=== PATIENT | female | born 1935 | race Caucasian/White ===

== ENCOUNTER 2016-11-23 22:12 | Observation (INO) ==
--- NOTE | 2016-11-23 22:45 | Emergency Department Note ---
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 pt was given asa and zofran in route. pt reports no chest pain at time of triage. hx htn, gerd Mode of Arrival: Stretcher Time Seen by Provider: 11/23/16 22:43 - History of Present Illness HPI Narrative: This is an 81-year-old white female who presents with sudden onset of vertigo associated with diaphoresis and vomiting and elevated blood pressure which started just prior to arrival. The patient had some chest pain which was fleeting and is now gone in association with the vomiting. She has noticed that sitting up and laying flat seems to trigger the vertigo sweating and vomiting. Allergies/Adverse Reactions: Allergies Allergy/AdvReac Type Severity Reaction Status Date / Time No Known Allergies Allergy Verified 06/17/15 12:21 Home Medications: Home Medications Medication Instructions Recorded Confirmed Type Aspirin EC Tab 81 mg PO DAILY 06/17/15 06/17/15 History Latanoprost 0.005% Oph Soln 1 drop BOTH EYES BEDTIME 06/17/15 06/18/15 History [Xalatan 0.005% Oph Soln] Omeprazole [Prilosec] 20 mg PO DAILY 06/17/15 06/18/15 History hydroCHLOROthiazide 25 mg PO DAILY 06/17/15 06/18/15 History [Hydrochlorothiazide] HYDROcodone/ACETAMIN 7.5-325 2 tablet PO Q4H PRN #25 tablet 06/21/15 Rx [[place] 7.5-325] Review of System - Review of System Constitutional: Absent: fever, night sweats Eyes: Absent: redness, vision change Head/Ears/Nose/Throat: Absent: epistaxis, nasal drainage Respiratory: Absent: respiratory distress Cardiovascular: Absent: dyspnea on exertion, orthopnea Gastrointestinal: Absent: diarrhea, constipation, hematemesis Genitourinary female: Absent: dyspareunia, frequency Musculoskeletal: Absent: joint swelling, lower back pain Skin: Absent: change in color, change in hair/nails Neurological: Absent: numbness, paresthesias Psychiatric: Absent: anxiety, suicidal thoughts Endocrine: Absent: heat intolerance, polydipsia Hematological/Lymphatic: Absent: easy bruising, lymphadenopathy Allergic/Immunologic: Absent: urticaria, itchy eyes Medical,Surgical,& Family Hx - Medical History Cardio: History of: Hypertension HEENT: History of: Eye Problem (Cataracts) Comment Only: Glaucoma (?Questionable-On Drops at bedtime) Respiratory: No history of: Respiratory Problems (10/2014 Flu Vac; No Pneum Vac) Gastrointestinal: History of: GERD, Gastrointestinal Bleed, GI Problems Musculoskeletal: History of: Musculoskeletal Problems (OA-Uses a straight Cane) - Surgical History Abdominal Surgeries: Surgical HX of: Cholecystectomy, Colonoscopy Reproductive Surgeries: Surgical HX of;: Hysterectomy Orthopedic Surgeries: Surgical HX of;: Total Knee Replacement (06/18/[address] Martín Lance) - Family History Family History: Reports;: Family Cancer (mother and grand father) - Social History Smoking Status: Never smoker Frequency of Alcohol Use: None Type of Drug Use: None Exam Vital Signs: Vital Signs Pulse Rate 57 L 11/23/16 22:12 Respiratory Rate 15 11/23/16 22:12 Blood Pressure 142/94 11/23/16 22:12 O2 Sat by Pulse Oximetry 99 11/23/16 22:12 - General Exam limited due to: ALOC - Head Head exam: Present: atraumatic, normocephalic - Eye Eye exam: Present: PERRL, EOMI - ENT ENT exam: Present: normal exam, normal oropharynx - Neck Neck exam: Present: normal inspection, full ROM - Chest Chest inspection: Present: normal inspection - Respiratory Respiratory exam: Present: normal lung sounds bilaterally - Cardiovascular Cardiovascular exam: Present: regular rate, normal rhythm - Abdominal Exam Abdominal exam: Present: soft, normal bowel sounds - Extremities Exam Extremities exam: Present: normal inspection, full ROM - Back Exam Back exam: Present: normal inspection, full ROM. Absent: CVA tenderness (R), CVA tenderness (L) - Neurological Exam Neurological exam: Present: alert, oriented X3, CN II-XII intact - Psychiatric Psychiatric exam: Present: normal affect, normal mood - Skin Skin exam: Present: warm, dry
[2016-11-23] MEDS ORDERED: KETOROLAC 30 MG/1 ML VIAL IV STA (22:47)
[2016-11-23] MEDS ORDERED: ONDANSETRON 4 MG/2 ML VIAL IV STA (22:48)
[2016-11-23] MEDS ORDERED: MECLIZINE 25 MG TABLET PO STA (22:49)
[2016-11-23] MEDS ORDERED: MECLIZINE 25 MG TABLET ONE (23:10)
[2016-11-23] MEDS ORDERED: KETOROLAC 30 MG/1 ML VIAL ONE (23:10)
[2016-11-23] MEDS ORDERED: ONDANSETRON 4 MG/2 ML VIAL ONE (23:10)
[2016-11-23 23:30] LABS: Basophils % 0.3 % (0.0-0.8); Eosinophils # 0.1 10*3/uL (0.0-0.87); Eosinophils % 1.1 % (0.00-10.9); Hematocrit 44.4 VOL% (35.7-47.0); Immature Granulocytes % 0.5 %; Immature Granulocytes Absolute 0.06 #; Lymphocytes # 2.4 10*3/uL (1.4-4.0); Lymphocytes % 21.9 % (21.3-54.2); Mean Corpuscular HGB Conc 33.8 GM/DL (32-36); Mean Corpuscular Hemoglobin 31 PG (27-34); Mean Corpuscular Volume 93.1 FL (87-102); Mean Platelet Volume 8.8 FL (9.6-12.0); Monocytes # 0.7 10*3/uL (0.11-0.8); Monocytes % 6.7 % (1.7-12.7); Neutrophils # 7.6 10*3/uL (1.4-7.4); Neutrophils % 69.5 % (38.7-73.9); Platelet Count 300 T/CUMM (130-400); Red Blood Count 4.77 MC/CUMM (3.8-5.5); Red Cell Distribution Width 12.3 % (9.3-17.3); White Blood Count 10.9 T/CUMM (4-12)
[2016-11-23] MEDS ORDERED: METOCLOPRAMIDE 10 MG/2 ML VIAL IV STA (23:35)
[2016-11-23] MEDS ORDERED: diphenhydrAMINE 50 MG/1 ML VIAL IV STA (23:36)
[2016-11-23 23:50] LABS: Alanine Aminotransferase 21 U/L (13-56); Albumin 3.6 G/DL (3.4-5.0); Alkaline Phosphatase 112 U/L (45-117); Aspartate Amino Transferase 17 U/L (0-37); Bilirubin,Total < 0.39 MG/DL (0.2-1.0); Blood Urea Nitrogen 15 MG/DL (7-18); Glucose 171 MG/DL (74-106); Osmolality,Calculated 281.5 MOS/KG (273-304); Potassium 3.6 MMOL/L (3.5-5.1); Sodium 139 MMOL/L (136-145); Total Protein 7.4 G/DL (6.4-8.3); Troponin I Only 0.026 NG/ML (0.00-0.045)
[2016-11-23] MEDS ORDERED: METOCLOPRAMIDE 10 MG/2 ML VIAL ONE (23:50)
[2016-11-23] MEDS ORDERED: diphenhydrAMINE 50 MG/1 ML VIAL ONE (23:50)
[2016-11-24] MEDS ORDERED: ACETAMINOPHEN 325 MG TABLET PO PRN (00:30)
[2016-11-24] MEDS ORDERED: ENOXAPARIN 40 MG/0.4 ML SYRINGE SUBCUT SCH (00:30)
[2016-11-24] MEDS ORDERED: ONDANSETRON 4 MG/2 ML VIAL IV PRN (00:30)
[2016-11-24] MEDS ORDERED: PROMETHAZINE 25 MG/1 ML VIAL IM PRN (00:34)
--- NOTE | 2016-11-24 00:38 | Hospitalist History & Physical ---
Assessment and Plan (1) Vertigo Status: Acute Current Visit: Yes (2) Hyperglycemia Status: Acute Current Visit: Yes (3) Nausea & vomiting Status: Acute Current Visit: Yes (4) Gastroesophageal reflux disease Status: Acute Assessment and plan: Our plan for this patient will be admitting her to our service schedule on meclizine treat her nausea and vomiting with Phenergan IM and Zofran IV. Check A1c in the morning reevaluate her chemistry. She does not have a history of diabetes and has a glucose of 175. If her symptoms do not resolve might need to consider an extended workup. Current Visit: No History of Present Illness Chief complaint: Dizziness nausea vomiting History of present illness: Ms. Salmon is a 81 year old female with past medical history significant for hypertension and reflux who was in normal state of health until tonight. Patient developed the dizziness that she described as red and the room spinning. When she laid down she felt like she would fall through the bed. She had several bouts of emesis. She called her daughter and when her daughter got her has she checked her blood pressure and it was elevated to 20/100. They called EMS. Her blood pressure started to settle down at this point. Patient was brought to our hospital for further evaluation. Patient repeatedly had nausea and vomiting and dizziness while in our emergency room I was consulted for admission. Home Medications Medication Instructions Recorded Confirmed Type Aspirin EC Tab 81 mg PO DAILY 06/17/15 06/17/15 History Latanoprost 0.005% Oph Soln 1 drop BOTH EYES BEDTIME 06/17/15 06/18/15 History [Xalatan 0.005% Oph Soln] Omeprazole [Prilosec] 20 mg PO DAILY 06/17/15 06/18/15 History hydroCHLOROthiazide 25 mg PO DAILY 06/17/15 06/18/15 History [Hydrochlorothiazide] HYDROcodone/ACETAMIN 7.5-325 2 tablet PO Q4H PRN #25 tablet 06/21/15 Rx [[place] 7.5-325] Allergies Allergy/AdvReac Type Severity Reaction Status Date / Time No Known Allergies Allergy Verified 06/17/15 12:21 Medical,Surgical,& Family Hx - Medical History Cardio: History of: Hypertension HEENT: History of: Eye Problem (Cataracts) Comment Only: Glaucoma (?Questionable-On Drops at bedtime) Respiratory: No history of: Respiratory Problems (10/2014 Flu Vac; No Pneum Vac) Gastrointestinal: History of: GERD, Gastrointestinal Bleed, GI Problems Musculoskeletal: History of: Musculoskeletal Problems (OA-Uses a straight Cane) - Surgical History Abdominal Surgeries: Surgical HX of: Cholecystectomy, Colonoscopy Reproductive Surgeries: Surgical HX of;: Hysterectomy Orthopedic Surgeries: Surgical HX of;: Total Knee Replacement (06/18/[address] Martín Lance) - Family History Family History: Reports;: Family Cancer (mother and grand father) - Social History Smoking Status: Never smoker Frequency of Alcohol Use: None Type of Drug Use: None 12 point system: reviewed and no additional remarkable complaints except as stated Exam - Constitutional Vitals: Period Temp Pulse Resp BP Sys/Bradford Pulse Ox Last 24 Hr 96.6 F 57 15 142/94 99 General appearance: over weight - Head Head exam: Present: normal inspection - Eye Eye exam: Present: EOMI Pupils: Present: JAN - ENT ENT exam: Present: normal exam - Neck Neck exam: Present: normal inspection - Respiratory Respiratory exam: Present: clear to auscultation bilaterally - Cardiovascular Cardiovascular exam: Present: regular rate and rhythm - GI/Abdominal GI/Abdominal exam: Present: normal bowel sounds - Extremities Exam Extremities exam: Present: normal inspection - Back Exam Back exam: Present: normal inspection - Neurological Exam Neurological exam: Present: alert - Psychiatric Psychiatric exam: Present: normal affect - Skin Skin exam: Present: normal color Results - Labs CBC & BMP: 11/23/16 23:11 11/23/16 23:11
--- NOTE | 2016-11-24 03:41 | EKG Report ---
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
[2016-11-24 05:11] LABS: Apearance,Urine Hazy (Clear); Bacteria,Urine Few /HPF (Few); Blood, Urine NEGATIVE (Negative); Glucose,Urine (UA) Negative (Negative); Ketones,Urine Negative (Negative); Mucus,Urine Many /LPF (Occasional); Nitrite,Urine Negative (Negative); Protein,Urine 30 MG/DL; RBC,Urine 3 /HPF (0-4); Squamous Epithelial Cell,Urine Occasional /HPF (0-10); Urine Specific Gravity 1.035 (1.001-1.035); WBC,Urine 25 /HPF (0-6)
[2016-11-24 05:12] LABS: Bilirubin,Urine Moderate mg/dL (Negative); Urine Color Yellow (Yellow)
--- NOTE | 2016-11-24 06:16 | CT Report ---
Referring physician: Antwon Taylor MD Exam: CT brain without contrast Date: 11/23/2016 Comparison: None Reason: Vertigo, dizziness Technique: Axial images of the head were obtained without the use of contrast. Total DLP was 914.60 mGy*cm. This exam was initially interpreted by [facility]. Findings: No hydrocephalus or midline shift is present. There is no evidence of an acute infarction, recent intracranial hemorrhage or abnormal mass effect. Diffuse atrophy and cerebral hypodensities with prominence of the subarachnoid spaces especially in the frontoparietal convexities. The osseous structures appear intact. The mastoid air cells and visualized paranasal sinuses are clear. Impression: No acute intracranial abnormality is identified. Diffuse atrophy and microvascular disease with prominent subarachnoid spaces bilaterally in the frontoparietal convexity location which is probably related to the atrophy but can be associated with small chronic bilateral subdural hygromas. The CT exam was performed using one or more of the following dose reduction techniques: Automated exposure control and adjustment of the mA and/or kV according to patient size. PROCEDURE INTERPRETED AT [facility] DEPARTMENT OF RADIOLOGY Final Report Signed by: Dr. Rashida Burgess
[2016-11-24 07:12] LABS: Albumin 3.2 G/DL (3.4-5.0); Bilirubin,Total 0.6 MG/DL (0.2-1.0); Osmolality,Calculated 284.3 MOS/KG (273-304); Potassium 3.9 MMOL/L (3.5-5.1); Total Protein 6.4 G/DL (6.4-8.3)
--- NOTE | 2016-11-24 08:10 | XRay Report ---
Portable chest Date: 11/23/2016 Clinical history: Chest pain Comparison: 06/11/2013 Technique: Portable AP sitting chest Findings: The heart is borderline in size with uncoiling of the aorta. 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 Degenerative changes are noted. Impression: No acute cardiopulmonary pathology identified. PROCEDURE INTERPRETED AT [facility] DEPARTMENT OF RADIOLOGY Final Report Signed by: Dr. Rashida Burgess
[2016-11-24] MEDS ORDERED: ASPIRIN EC 81 MG TABLET PO SCH (09:00)
[2016-11-24] MEDS ORDERED: hydroCHLOROthiazide 25 MG TABLET PO SCH (09:00)
[2016-11-24] MEDS ORDERED: PANTOPRAZOLE 40 MG TABLET PO SCH (09:00)
[2016-11-24] MEDS ORDERED: MECLIZINE 25 MG TABLET PO SCH (09:00)
--- NOTE | 2016-11-24 10:07 | Discharge Summary ---
Hospital Course - Hospital Course Hospital Course: Ms. Salmon is an 81-year-old white female that was admitted to the emergency department with dizziness vertigo and nausea and vomiting. Her symptoms have improved overnight. She has minimal dizziness and no further nausea or vomiting since admission. She has no other motor or sensory deficits. Her mental status is normal. She does not have any evidence of acute stroke. 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 Her home medications were reviewed and reconciled. She is a full code. Her daughter is a nurse but was not at the bedside at the time of my evaluation. - Time spent with patient Time with patient DS: Less than 30 minutes Diagnosis - Discharge Diagnosis (1) Vertigo Status: Acute (2) Nausea & vomiting Status: Resolved Discharge Plan - Discharge Data Disposition: Disch To Home/Self Care Condition at Discharge: Stable Discharge Diet: advance to your usual diet Activity: resume usual activities as tolerated Hygiene: no restrictions Weight Bearing at Discharge: full weight bearing Contact your physician if you experience:: Nausea/Vomiting - Discharge Medications New Promethazine Tab [Phenergan Tab] 25 mg PO Q4H PRN #20 tablet PRN Reason: Nausea/Vomiting RX: Meclizine [Antivert] 25 mg PO TID PRN #20 tablet PRN Reason: Dizziness Continue RX: Omeprazole [Prilosec] 20 mg PO DAILY RX: Latanoprost 0.005% Oph Soln [Xalatan 0.005% Oph Soln] 1 drop BOTH EYES BEDTIME RX: hydroCHLOROthiazide [Hydrochlorothiazide] 25 mg PO DAILY RX: Aspirin EC Tab 81 mg PO DAILY RX: HYDROcodone/ACETAMIN 7.5-325 [[place] 7.5-325] 2 tablet PO Q4H PRN #25 tablet PRN Reason: Moderate Pain unrelieved by 1 - Follow Up or Referral - Forms/Instructions Additional Discharge Instructions: Follow-up with primary care physician in 1 week Exam - Constitutional Vitals: Period Temp Pulse Resp BP Sys/Bradford Pulse Ox Last 24 Hr 96.5 F-98.5 F 57-66 15-20 116-142/67-94 93-99 Exam: Constitutional System: No distress. No tremulousness. Head: Normocephalic, atraumatic. Ears, Nose and Throat System: No pain or tenderness. No epistaxis or discharge Eyes System: Pupils equal, round, and reactive. Extraocular muscles intact. Neck: Supple, without adenopathy, No jugular venous distention. No thyromegaly, neck mass, or prior surgery apparent. Respiratory System: Chest clear to auscultation. Cardiovascular System: Heart with regular rate and rhythm. No murmur. GI System: Abdomen soft, nontender. Normo active bowel sounds present. Musculoskeletal System: limbs with no pedal edema. Full distal pulses. Normal capillary refill. Neurological System: No discernable sensory deficit. No aphasia Psychiatric System: Conversation is rational Discharge Results Procedures and tests throughout hospitalization: Pending Orders 11/24/16 Urine Culture Routine Labs on day of discharge: Labs from last 24 hours 11/24/16 11/24/16 11/24/16 05:11 05:11 04:34 WBC RBC Hgb Hct MCV MCH MCHC RDW Plt Count MPV Neut % (Auto) Lymph % (Auto) [place] % (Auto) Eos % (Auto) Baso % (Auto) Neut # (Auto) Lymph # (Auto) [place] # (Auto) Eos # (Auto) Baso # (Auto) Immature Gran % Nucleated RBC % Immature Gran # Nucleated RBCs # Immature Plt Fraction Sodium 141 Potassium 3.9 Chloride 104 Carbon Dioxide 30 Anion Gap 10.9 BUN 17 Creatinine 0.70 GFR Calculation 92 BUN/Creatinine Ratio 24.00 H Glucose 132 H Hemoglobin A1c 7.4 H Calculated Osmolality 284.3 Calcium 9.0 Total Bilirubin 0.60 AST 16 ALT 21 Alkaline Phosphatase 101 Troponin I Total Protein 6.4 Albumin 3.2 L Globulin 3.2 Albumin/Globulin Ratio 1.0 L Urine Color Yellow Urine Appearance Hazy Urine pH 6.0 Ur Specific [place] 1.035 Urine Protein 30 Urine Glucose (UA) Negative Urine Ketones Negative Urine Blood Negative Urine Nitrate Negative Urine Bilirubin Moderate H Urine Urobilinogen 2.0 H Urine Leukocytes Trace Urine RBC 3 Urine WBC 25 Ur Squamous Epith Cells Occasional Urine Bacteria Few Urine Mucus Many Ur Culture Indicated? Results to follow 11/23/16 11/23/16 23:11 23:11 WBC 10.9 RBC 4.77 Hgb 15.0 Hct 44.4 MCV 93.1 MCH 31 MCHC 33.8 RDW 12.3 Plt Count 300 MPV 8.8 L Neut % (Auto) 69.5 Lymph % (Auto) 21.9 [place] % (Auto) 6.7 Eos % (Auto) 1.1 Baso % (Auto) 0.3 Neut # (Auto) 7.6 H Lymph # (Auto) 2.4 [place] # (Auto) 0.7 Eos # (Auto) 0.1 Baso # (Auto) 0.0 Immature Gran % 0.5 Nucleated RBC % 0.0 Immature Gran # 0.06 Nucleated RBCs # 0.00 Immature Plt Fraction 0.0 Sodium 139 Potassium 3.6 Chloride 104 Carbon Dioxide 28 Anion Gap 10.6 BUN 15 Creatinine 0.70 GFR Calculation 92 BUN/Creatinine Ratio 21.00 H Glucose 171 H Hemoglobin A1c Calculated Osmolality 281.5 Calcium 9.0 Total Bilirubin < 0.39 AST 17 ALT 21 Alkaline Phosphatase 112 Troponin I 0.026 Total Protein 7.4 Albumin 3.6 Globulin 3.8 H Albumin/Globulin Ratio 0.9 L Urine Color Urine Appearance Urine pH Ur Specific [place] Urine Protein Urine Glucose (UA) Urine Ketones Urine Blood Urine Nitrate Urine Bilirubin Urine Urobilinogen Urine Leukocytes Urine RBC Urine WBC Ur Squamous Epith Cells Urine Bacteria Urine Mucus Ur Culture Indicated? DS: Provider Date of admission: 11/24/16 00:30 Primary care physician: . No PCP Attending physician on admission: Leo Carrillo MD Discharging clinician: Elba Kearney MD Expected date of discharge: 11/24/16
[2016-11-24 11:21] VITALS: BP 135/69
[2016-11-24] MEDS ORDERED: LATANOPROST 0.005% OPH SOLN 2.5 ML BOTTLE BOTH EYES SCH (21:00)
== END 2016-11-24 13:05 | disposition home or self-care (01) ==
LOC: EDUNIT# → N.ED 22:12 → N.3E 22:12 → SUATTDRO 11-24 00:30 → N.3E 11-24 01:20
PROVIDERS: ADMIT Internal Medicine; ATTEND Family Medicine

== ENCOUNTER 2018-05-09 05:40 | Inpatient (IN) ==
[2018-05-09] MEDS ORDERED: VANCOMYCIN 1,000 MG VIAL ONE (05:55)
[2018-05-09] MEDS ORDERED: FAMOTIDINE 20 MG TABLET ONE (05:55)
[2018-05-09] MEDS ORDERED: ceFAZolin 1,000 MG VIAL ONE (05:55)
[2018-05-09] MEDS ORDERED: FAMOTIDINE 20 MG TABLET PO ONE (06:00)
[2018-05-09] MEDS ORDERED: ROPIVACAINE 0.5% 30 ML VIAL ONE (06:30)
[2018-05-09] MEDS: LACTATED RINGERS 1,000 ML IV SCH ×2 (06:30→21:01)
[2018-05-09] MEDS ORDERED: LIDOCAINE 1% 5 ML VIAL ONE (06:33)
[2018-05-09] MEDS ORDERED: VANCOMYCIN INJ 1,000 MG in SODIUM CHLORIDE 0.9% 250 ML IV ONE (07:00)
[2018-05-09] MEDS ORDERED: ceFAZolin 1,000 MG in SYRINGE 1 EACH IV ONE (07:00)
[2018-05-09] MEDS ORDERED: BISACODYL 10 MG SUPP RECTAL PRN (07:11)
[2018-05-09] MEDS ORDERED: TEMAZEPAM 7.5 MG CAPSULE PO PRN (07:11)
[2018-05-09] MEDS ORDERED: LACTULOSE 20 GM/30 ML UDCUP PO PRN (07:11)
[2018-05-09] MEDS ORDERED: MORPHINE 4 MG/1 ML VIAL IV PRN ×2 (07:11→09:04)
[2018-05-09] MEDS ORDERED: ONDANSETRON 4 MG/2 ML VIAL IV PRN (07:11)
[2018-05-09] MEDS ORDERED: diphenhydrAMINE CAP 25 MG CAPSULE PO PRN (07:11)
[2018-05-09] MEDS ORDERED: MAGNESIUM HYDROXIDE SUSP 30 ML UDCUP PO PRN (07:11)
[2018-05-09] MEDS ORDERED: BUPIVACAINE SPINAL 0.75% 2 ML AMP SPINAL ONE (08:58)
[2018-05-09] MEDS ORDERED: TRANEXAMIC ACID 1,000 MG/10 ML VIAL ONE (08:59)
[2018-05-09] MEDS ORDERED: fentaNYL 100 MCG/2 ML VIAL ONE (08:59)
[2018-05-09] MEDS ORDERED: ONDANSETRON 4 MG/2 ML VIAL ONE (08:59)
[2018-05-09] MEDS ORDERED: PHENYLEPHRINE 1 MG/10 ML SYRINGE IV ONE (08:59)
[2018-05-09] MEDS ORDERED: PROPOFOL 500 MG/50 ML BOTTLE IV ONE (08:59)
[2018-05-09] MEDS ORDERED: MIDAZOLAM 2 MG/2 ML VIAL ONE (08:59)
[2018-05-09] MEDS ORDERED: SODIUM CHLORIDE 0.9% 100 ML IV ONE (08:59)
[2018-05-09] MEDS: PANTOPRAZOLE 40 MG TABLET PO SCH (10:46)
[2018-05-09] MEDS: hydroCHLOROthiazide 25 MG TABLET PO SCH (10:46)
[2018-05-09] MEDS: CALCIUM (CARBONATE)/VITAMIN D 500 MG-200 UNIT TABLET PO SCH (10:46)
[2018-05-09] MEDS: MULTIVITAMIN (CENTRUM) TABLET PO SCH (10:46)
[2018-05-09] MEDS: DOCUSATE SODIUM 100 MG CAPSULE PO SCH ×2 (10:46→21:01)
[2018-05-09] MEDS: ASPIRIN EC 81 MG TABLET PO SCH (11:03)
[2018-05-09] MEDS: ceFAZolin 1,000 MG in SYRINGE 1 EACH IV SCH ×2 (16:30→23:53)
[2018-05-09] MEDS ORDERED: PROMETHAZINE 25 MG/1 ML VIAL IM PRN (17:26)
[2018-05-09] MEDS: FONDAPARINUX 2.5 MG/0.5 ML SYRINGE SUBCUT SCH (21:00)
[2018-05-09] MEDS: LATANOPROST 0.005% OPH SOLN 2.5 ML BOTTLE BOTH EYES SCH (21:01)
[2018-05-10 06:27] LABS: Basophils % 0.2 % (0.0-0.8); Eosinophils % 0.1 % (0.00-10.9); Hematocrit 41.4 VOL% (35.7-47.0); Hemoglobin 13.4 GM/DL (12.0-16.0); Immature Granulocytes % 0.6 %; Immature Granulocytes Absolute 0.09 #; Lymphocytes # 2.8 10*3/uL (1.4-4.0); Mean Corpuscular HGB Conc 32.4 GM/DL (32-36); Mean Corpuscular Hemoglobin 31 PG (27-34); Mean Corpuscular Volume 96.7 FL (87-102); Mean Platelet Volume 8.9 FL (9.6-12.0); Monocytes # 1.7 10*3/uL (0.11-0.8); Monocytes % 11.5 % (1.7-12.7); Neutrophils # 10.2 10*3/uL (1.4-7.4); Neutrophils % 68.6 % (38.7-73.9); Platelet Count 300 T/CUMM (130-400); Red Blood Count 4.28 MC/CUMM (3.8-5.5); Red Cell Distribution Width 12.5 % (9.3-17.3); White Blood Count 14.8 T/CUMM (4-12)
[2018-05-10 07:03] LABS: Calcium 8.8 MG/DL (8.5-10.1); Osmolality,Calculated 273.2 MOS/KG (273-304); Potassium 4.8 MMOL/L (3.5-5.1)
[2018-05-10] MEDS: MULTIVITAMIN (CENTRUM) TABLET PO SCH (09:25)
[2018-05-10] MEDS: LACTATED RINGERS 1,000 ML IV SCH ×2 (09:25→18:01)
[2018-05-10] MEDS: hydroCHLOROthiazide 25 MG TABLET PO SCH (09:25)
[2018-05-10] MEDS: PANTOPRAZOLE 40 MG TABLET PO SCH (09:25)
[2018-05-10] MEDS: ASPIRIN EC 81 MG TABLET PO SCH (09:25)
[2018-05-10] MEDS: DOCUSATE SODIUM 100 MG CAPSULE PO SCH ×2 (09:25→21:19)
[2018-05-10] MEDS: CALCIUM (CARBONATE)/VITAMIN D 500 MG-200 UNIT TABLET PO SCH (09:25)
[2018-05-10] MEDS: FONDAPARINUX 2.5 MG/0.5 ML SYRINGE SUBCUT SCH (21:19)
[2018-05-10] MEDS: LATANOPROST 0.005% OPH SOLN 2.5 ML BOTTLE BOTH EYES SCH (21:19)
[2018-05-11] MEDS: LACTATED RINGERS 1,000 ML IV SCH (05:13)
[2018-05-11] MEDS: DOCUSATE SODIUM 100 MG CAPSULE PO SCH ×2 (10:51→20:48)
[2018-05-11] MEDS: PANTOPRAZOLE 40 MG TABLET PO SCH (10:51)
[2018-05-11] MEDS: CALCIUM (CARBONATE)/VITAMIN D 500 MG-200 UNIT TABLET PO SCH (10:53)
[2018-05-11] MEDS: MULTIVITAMIN (CENTRUM) TABLET PO SCH (10:53)
[2018-05-11] MEDS: hydroCHLOROthiazide 25 MG TABLET PO SCH (10:53)
[2018-05-11] MEDS: ASPIRIN EC 81 MG TABLET PO SCH (10:53)
[2018-05-11] MEDS: FONDAPARINUX 2.5 MG/0.5 ML SYRINGE SUBCUT SCH (20:48)
[2018-05-11] MEDS: LATANOPROST 0.005% OPH SOLN 2.5 ML BOTTLE BOTH EYES SCH (20:48)
[2018-05-12] MEDS: PANTOPRAZOLE 40 MG TABLET PO SCH (08:27)
[2018-05-12] MEDS: MULTIVITAMIN (CENTRUM) TABLET PO SCH (08:27)
[2018-05-12] MEDS: CALCIUM (CARBONATE)/VITAMIN D 500 MG-200 UNIT TABLET PO SCH (08:27)
[2018-05-12] MEDS: DOCUSATE SODIUM 100 MG CAPSULE PO SCH (08:27)
[2018-05-12] MEDS: hydroCHLOROthiazide 25 MG TABLET PO SCH (08:27)
[2018-05-12] MEDS: ASPIRIN EC 81 MG TABLET PO SCH (08:27)
[2018-05-12 11:53] VITALS: BP 132/77
== END 2018-05-12 12:06 | disposition swing bed (61) | DRG 470 ==
LOC: N.OR 05:40 → N.SDSINP 05:47 → N.3E 07:11
PROVIDERS: ADMIT Orthopaedic Surgery; ATTEND Orthopaedic Surgery